=== PATIENT | female | born 1940 | race Caucasian/White ===

== ENCOUNTER 2017-09-10 01:59 | Emergency (ER) | payer MEDICARE, OTHER ==
[2017-09-10] MEDS ORDERED: LIDOCAINE 2%/EPI 1:100,000 20 ML VIAL. IJ (02:30)
[2017-09-10 02:43] LABS: ADD MAN DIFF? NO
[2017-09-10] MEDS: DIPHTH,PERTUSS(ACELL),TET TOX 0.5 ML DISP.SYRIN. VAX IM (02:44)
[2017-09-10 02:46] LABS: BASO # 0.1 x10^3/uL (0.0-0.2); BASO % 1 % (0-3); EOS # 0.2 x10^3/uL (0.0-0.7); EOS % 3 % (0-3); HEMOGLOBIN 11.4 g/dL (12.0-15.5); LYMPH # 2.5 x10^3/uL (1.0-4.8); LYMPH % 41 % (24-48); MEAN CORPUSCULAR HEMOGLOBIN 30 pg (25-35); MEAN CORPUSCULAR HGB CONC 34 g/dL (31-37); MEAN CORPUSCULAR VOLUME 90 fL (79-100); MONO # 0.4 x10^3/uL (0.0-1.1); MONO % 6 % (0-9); NEUT % 50 % (31-73); PLATELET COUNT 240 x10^3/uL (140-400); RED BLOOD COUNT 3.78 x10^6/uL (3.50-5.40); RED CELL DISTRIBUTION WIDTH 14.2 % (11.5-14.5)
[2017-09-10] MEDS: LIDOCAINE 2%/EPI 1:100,000 20 ML VIAL. IJ (02:46)
[2017-09-10] MEDS: IV NORMAL SALINE 1000ML BAG 1,000 ML IV (02:46)
[2017-09-10 02:56] LABS: ANION GAP 13 (6-14); BLOOD UREA NITROGEN 28 mg/dL (7-20); BUN/CREATININE RATIO 40 (6-20); CALCIUM 9.8 mg/dL (8.5-10.1); CARBON DIOXIDE 26 mmol/L (21-32); CHLORIDE 98 mmol/L (98-107); CREATININE 0.7 mg/dL (0.6-1.0); GFR 81.4; GLUCOSE 159 mg/dL (70-99); POTASSIUM 3.6 mmol/L (3.5-5.1); SODIUM 137 mmol/L (136-145)
[2017-09-10 03:02] LABS: ALBUMIN 3.6 g/dL (3.4-5.0); ALK PHOS 89 U/L (46-116); ALT (SGPT) 27 U/L (14-59); AST (SGOT) 20 U/L (15-37); TOTAL BILIRUBIN 0.2 mg/dL (0.2-1.0); TOTAL PROTEIN 7.2 g/dL (6.4-8.2)
[2017-09-10 03:09] LABS: THYROID STIM HORMONE (TSH) 2.575 uIU/mL (0.358-3.74)
== END 2017-09-10 06:06 | disposition home or self-care (01) ==
LOC: ER 01:59
DX: S01.81XA Laceration without foreign body of other part of head, initial encounter (principal); R53.1 Weakness; R79.89 Other specified abnormal findings of blood chemistry; R07.89 Other chest pain; E11.51 Type 2 diabetes mellitus with diabetic peripheral angiopathy without gangrene; K21.9 Gastro-esophageal reflux disease without esophagitis; I10 Essential (primary) hypertension; F03.90 Unspecified dementia, unspecified severity, without behavioral disturbance, psychotic disturbance, mood disturbance, and anxiety; W06.XXXA Fall from bed, initial encounter; Y93.89 Activity, other specified; Y99.8 Other external cause status; Y92.89 Other specified places as the place of occurrence of the external cause
CPT/HCPCS: 36415; 70450; 71045; 72125; 72170; 80053; 84443; 84484; 85025; 90471; 90715; 93005; 96360; 96361; 99285-25; J3490; J7030

== ENCOUNTER 2020-01-08 14:03 | Emergency (ER) | payer MEDICARE, MEDICAID ==
[~2020-01-08] VITALS: Ht 154.9 cm; Wt 85.0 kg
[~2020-01-08 14:03] MED LIST: ACET325T9 PO; ACET500T68 PO; AMLO10TA8 PO; ASPI-630 PO; ATOR20TA58 PO; CHOL500021 PO; HYDR50TA6 PO; LOSA100T14 PO; MAGN24003 PO; MAGN400T22 PO; METF10007 PO; ONDA4TAB7 PO; PIOG30TA41 PO; POLY17PO29 PO; SULF1TAB24 PO; VENL37.56 PO
[2020-01-08 14:43] LABS: BASO % 0 % (0-3); EOS % 0 % (0-3); HEMATOCRIT 30.7 % (36.0-47.0); HEMOGLOBIN 9.5 g/dL (12.0-15.5); LYMPH # 1.2 x10^3/uL (1.0-4.8); LYMPH % 9 % (24-48); MEAN CORPUSCULAR HEMOGLOBIN 27 pg (25-35); MEAN CORPUSCULAR HGB CONC 31 g/dL (31-37); MEAN CORPUSCULAR VOLUME 87 fL (79-100); MONO # 0.4 x10^3/uL (0.0-1.1); MONO % 3 % (0-9); NEUT # 11.5 x10^3/uL (1.8-7.7); NEUT % 87 % (31-73); PLATELET COUNT 253 x10^3/uL (140-400); RED BLOOD COUNT 3.54 x10^6/uL (3.50-5.40); RED CELL DISTRIBUTION WIDTH 24.8 % (11.5-14.5); WHITE BLOOD COUNT 13.2 x10^3/uL (4.0-11.0)
[2020-01-08 15:04] LABS: % BANDS 11 % (0-9); % LYMPHS 8 % (24-48); % MONOS 5 % (0-10); % SEGS 76 % (35-66); ANISOCYTOSIS MOD; OVALOCYTES FEW; PLT ESTIMATE ADEQUATE (ADEQUATE); POIKILOCYTOSIS SLIGHT; SCHISTOCYTES OCC
[2020-01-08 15:06] LABS: BURR CELLS PRESENT
--- NOTE | 2020-01-08 15:07 | RAD ---
Examination: CHEST AP ONLY History: Reason: sob, covid? / Spl. Instructions: / History: Comparison: 07/26/2018 Portable Chest X-ray Exam. Findings: AP portable upright frontal view of the chest was obtained. Suture material at the left hilar region noted. The cardiomediastinal silhouette is normal. Consolidation is present at the left upper and mid thoracic level. Minimal discoid atelectasis involves the right lower lung field. Pulmonary vasculature is slightly congested. No pneumothorax. Right upper quadrant surgical clips. IMPRESSION: Left upper to mid lung consolidation. Follow-up to resolution recommended. Electronically signed by: James Méndez MD (01/08/2020 3:04 PM) [id number]
[2020-01-08 15:08] LABS: ALBUMIN 2.8 g/dL (3.4-5.0); ALBUMIN/GLOBULIN RATIO 0.6 (1.0-1.7); ALK PHOS 126 U/L (46-116); ALT (SGPT) 25 U/L (14-59); AST (SGOT) 25 U/L (15-37); BLOOD UREA NITROGEN 110 mg/dL (7-20); BUN/CREATININE RATIO 16 (6-20); C-REACTIVE PROTEIN 147.3 mg/L (0-3.3); CALCIUM 9.6 mg/dL (8.5-10.1); CHLORIDE 99 mmol/L (98-107); CREATINE KINASE 76 U/L (26-192); CREATININE 6.8 mg/dL (0.6-1.0); GFR 5.9; GLUCOSE 133 mg/dL (70-99); LACTATE DEHYDROGENASE 196 U/L (81-234); SODIUM 139 mmol/L (136-145); TOTAL BILIRUBIN 0.3 mg/dL (0.2-1.0); TOTAL PROTEIN 7.4 g/dL (6.4-8.2)
[2020-01-08 15:13] LABS: POTASSIUM 7.8 mmol/L (3.5-5.1)
[2020-01-08 15:14] LABS: CARBON DIOXIDE < 5 mmol/L (21-32)
[2020-01-08] MEDS ORDERED: FUROSEMIDE 40 MG/4 ML VIAL. IVP ONE (15:30)
[2020-01-08] MEDS ORDERED: cefTRIAXone IV Push 1 GM VIAL. IVP ONE (15:30)
[2020-01-08] MEDS ORDERED: IV NORMAL SALINE 1000ML BAG 1,000 ML IV ONE (15:30)
[2020-01-08] MEDS ORDERED: CALCIUM GLUCONATE 1,000 MG/10 ML VIAL. IVP ONE (15:30)
[2020-01-08] MEDS ORDERED: MORPHINE SULFATE 4 MG/ML VIAL. IVP ONE (15:45)
[2020-01-08 15:51] LABS: BASE EXCESS ABG -28 mmol/L (-3-3); HCO3 ABG 3 mmol/L (21-28); PO2 ABG 229 mmHg (65-108); SAT O2 ABG 99 % (92-99)
[2020-01-08 15:53] LABS: FIO2 ABG 100; PCO2 ABG 16 mmHg (35-46)
--- NOTE | 2020-01-08 16:38 | PHYS DOC ---
Past Medical History Past Medical History: Arthritis, Dementia, Diabetes-Type II, GERD, High Cholesterol, Hypertension Additional Past Medical Histor: PVD, DYSPHAGIA, CONTRACTURES, CVD Past Surgical History: No Surgical History Smoking Status: Never Smoker Alcohol Use: None Drug Use: None General Adult EDM: Chief Complaint: DYSPNEA/RESPIRATOY DISTRESS HPI: HPI: Patient is a 79 year old [f__sex] who presents with [] Review of Systems: Review of Systems: Unable to obtain due to AMS Heart Score: Risk Factors: Risk Factors: DM, Current or recent (<one month) smoker, HTN, HLP, family history of CAD, obesity. Risk Scores: Score 0 - 3: 2.5% MACE over next 6 weeks - Discharge Home Score 4 - 6: 20.3% MACE over next 6 weeks - Admit for Clinical Observation Score 7 - 10: 72.7% MACE over next 6 weeks - Early Invasive Strategies Current Medications: Current Medications Medications (Trade) Dose Ordered Sig/Indu Start Time Stop Time Status Last Admin Dose Admin Calcium Gluconate (Calcium Gluconate) 1,000 mg 1X ONCE 01/08/20 15:30 01/08/20 15:31 DC 01/08/20 15:57 1,000 MG Ceftriaxone Sodium (Rocephin) 1 gm 1X ONCE 01/08/20 15:30 01/08/20 15:46 DC Furosemide (Lasix) 40 mg 1X ONCE 01/08/20 15:30 01/08/20 15:46 DC Morphine Sulfate (Morphine Sulfate) 3 mg 1X ONCE 01/08/20 15:45 01/08/20 15:46 DC 01/08/20 15:56 3 MG Sodium Chloride 1,000 ml @ 0 mls/hr 1X ONCE 01/08/20 15:30 01/08/20 15:31 DC 01/08/20 15:54 999 MLS/HR Allergies: Allergies: Allergies Coded Allergies Type Severity Reaction Last Updated Verified No Known Drug Allergies 07/26/18 No Physical Exam: PE: Constitutional: Cachectic, contractures, toxic appearing HEENT: Normocephalic, atraumatic, oropharynx moist, EOMI, PERRL, no drainage from eyes, normal conjunctiva Neck: Supple, normal range of motion, no stridor Cardiovascular: Bradycardia, 2+ radial pulses bilaterally, no edema Respiratory: Decreased breath sounds bilaterally, peripheral cyanosis, increased work of breathing, tachypnea Abdomen: Soft, nontender, nondistended, no masses Skin: Cold, dry, intact Extremities: No obvious deformities Neurologic: Nonverbal, minimal movement, responsive to painful stimuli Current Patient Data: Labs: Laboratory Tests Test 01/08/20 14:30 01/08/20 15:40 White Blood Count 13.2 x10^3/uL (4.0-11.0) H Red Blood Count 3.54 x10^6/uL (3.50-5.40) Hemoglobin 9.5 g/dL (12.0-15.5) L Hematocrit 30.7 % (36.0-47.0) L Mean Corpuscular Volume 87 fL (79-100) Mean Corpuscular Hemoglobin 27 pg (25-35) Mean Corpuscular Hemoglobin Concent 31 g/dL (31-37) Red Cell Distribution Width 24.8 % (11.5-14.5) H Platelet Count 253 x10^3/uL (140-400) Neutrophils (%) (Auto) 87 % (31-73) H Lymphocytes (%) (Auto) 9 % (24-48) L Monocytes (%) (Auto) 3 % (0-9) Eosinophils (%) (Auto) 0 % (0-3) Basophils (%) (Auto) 0 % (0-3) Neutrophils # (Auto) 11.5 x10^3/uL (1.8-7.7) H Lymphocytes # (Auto) 1.2 x10^3/uL (1.0-4.8) Monocytes # (Auto) 0.4 x10^3/uL (0.0-1.1) Eosinophils # (Auto) 0.0 x10^3/uL (0.0-0.7) Basophils # (Auto) 0.0 x10^3/uL (0.0-0.2) Segmented Neutrophils % 76 % (35-66) H Band Neutrophils % 11 % (0-9) H Lymphocytes % 8 % (24-48) L Monocytes % 5 % (0-10) Platelet Estimate Adequate (ADEQUATE) Poikilocytosis Slight Anisocytosis Mod Ovalocytes Few Dustin Cells Present Schistocytes Occ RBC Morphology Bizarre Forms D-Dimer (Precious) 3.98 ug/mlFEU (0.00-0.50) H Sodium Level 139 mmol/L (136-145) Potassium Level 7.8 mmol/L (3.5-5.1) *H Chloride Level 99 mmol/L (98-107) Carbon Dioxide Level < 5 mmol/L (21-32) *L Anion Gap (6-14) Blood Urea Nitrogen 110 mg/dL (7-20) H Creatinine 6.8 mg/dL (0.6-1.0) H Estimated GFR (Cockcroft-Gault) 5.9 BUN/Creatinine Ratio 16 (6-20) Glucose Level 133 mg/dL (70-99) H Calcium Level 9.6 mg/dL (8.5-10.1) Total Bilirubin 0.3 mg/dL (0.2-1.0) Aspartate Amino Transferase (AST) 25 U/L (15-37) Alanine Aminotransferase (ALT) 25 U/L (14-59) Alkaline Phosphatase 126 U/L (46-116) H Lactate Dehydrogenase 196 U/L (81-234) Creatine Kinase 76 U/L (26-192) Troponin I Quantitative 0.090 ng/mL (0.000-0.055) C-Reactive Protein, Quantitative 147.3 mg/L (0-3.3) H NF-Mfy-C-Type Natriuretic Peptide 41121 pg/mL (0-449) H Total Protein 7.4 g/dL (6.4-8.2) Albumin 2.8 g/dL (3.4-5.0) L Albumin/Globulin Ratio 0.6 (1.0-1.7) L O2 Saturation 99 % (92-99) Arterial Blood pH 6.90 (7.35-7.45) *L Arterial Blood pCO2 at Patient Temp 16 mmHg (35-46) *L Arterial Blood pO2 at Patient Temp 229 mmHg (65-108) H Arterial Blood HCO3 3 mmol/L (21-28) L Arterial Blood Base Excess -28 mmol/L (-3-3) L FiO2 100 Laboratory Tests 01/08/20 14:30 Laboratory Tests 01/08/20 14:30 Vital Signs: Vital Signs Date Time Temp Pulse Resp B/P (MAP) Pulse Ox O2 Delivery O2 Flow Rate FiO2 01/08/20 16:12 62 103/54 (70) 99 NonRebreather Mask 15.0 01/08/20 15:56 28 01/08/20 14:03 90.9 90.9 EKG: EKG: [] Radiology/Procedures: Radiology/Procedures: [] Course & Med Decision Making: Course & Med Decision Making Pertinent Labs and Imaging studies reviewed. (See chart for details) Patient is a 79-year-old female with past medical history of dementia who presents to the emergency room after being found to be in respiratory distress. Patient is requiring oxygen here in the emergency room. She is unable to provide any history. Patient has a wide QRS with bradycardia on EKG concerning for possible hypothermia, electrolyte abnormalities. Temperature was 90.2. Patient was placed on a bear hugger. Labs are drawn including CBC, CMP, troponin, BNP, UA. Patient appears to be in acute kidney failure. Her potassium is 7.8. Creatinine is significantly elevated. At this time patient would need emergent dialysis. I have called and talked to the patient's BOSSMAN Escalante. We have discussed the treatment that would be required at this time the family would like to opt for hospice care. Given patient's baseline and current status, I agreed that hospice would be the most humane way to proceed at this time. Patient was given calcium and fluids. She was given morphine to help with air hunger. Patient will be kept comfortable here in the emergency room. Multiple calls were made to the nursing facility and they have agreed to do hospice care for her at the facility. Patient will be discharged back to the facility. Greater than 45 minutes arranging care and talking with the family. Rony Disclaimer: Rony Disclaimer: This electronic medical record was generated, in whole or in part, using a voice recognition dictation system. Departure Departure Impression: Primary Impression: Renal failure Additional Impressions: Hyperkalemia Metabolic acidosis Dehydration Respiratory failure, acute Disposition: 05 TRANSFER OTHER (Hospice at facility) Condition: CRITICAL Additional Instructions: Patient is in renal failure. Family has opted for hospice care. Justicifation of Admission Dx: Justifications for Admission: Justification of Admission Dx: Yes Critical Care Time Critical Care: Authorized and Performed by: Wesley Cardona MD Total critical care time: approximately 45 minutes Due to a high probability of clinically significant, life threatening deterioration, the patient required my highest level of preparedness to intervene emergently and I personally spent this critical care time directly and personally managing the patient. This critical care time included obtaining a history; examining the patient; pulse oximetry; ventilator management if necessary; ordering and review of studies; arranging urgent treatment with development of a management plan; evaluation of patient's response to treatment; frequent reassessment; discussion with patient/family; and, discussions with other providers. This critical care time was performed to assess and manage the high probability of imminent, life-threatening deterioration that could result in multi-organ failure. It was exclusive of separately billable procedures and treating other patients and teaching time. Please see MDM section and the rest of the note for further information on pa tient assessment and treatment. WESLEY CARDONA MD Jan 08, 2020 16:38
[2020-01-08 17:27] VITALS: BP 73/38
--- NOTE | 2020-01-11 16:14 | EKG ---
[facility] [address] [place] [address] Test Date: 2020-01-08 Test Time: 14:09:27 Pat Name: ARUN KATE Department: Room: Gender: F Business Consultant: : [id number] Requested By: WESLEY ESPARZA Order Number: [id number] Reading MD: Measurements Intervals Locke Rate: 63 P: NV: QRS: -51 QRSD: 114 T: 38 QT: 456 QTc: 470 Interpretive Statements IRREGULAR RHYTHM, NO P-WAVE FOUND ABNORMAL LEFT AXIS DEVIATION S1,S2,S3 PATTERN LEFT ANTERIOR FASCICULAR BLOCK ST & T ABNORMALITY, CONSIDER ANTERIOR ISCHEMIA OR LEFT VENTRICULAR STRAIN ABNORMAL ECG RI6.01 No previous ECG available for comparison
== END 2020-01-08 17:40 | disposition home or self-care (01) ==
LOC: ER 14:03
DX: J96.00 Acute respiratory failure, unspecified whether with hypoxia or hypercapnia (principal); Z20.828 Contact with and (suspected) exposure to other viral communicable diseases; E11.22 Type 2 diabetes mellitus with diabetic chronic kidney disease; I12.9 Hypertensive chronic kidney disease with stage 1 through stage 4 chronic kidney disease, or unspecified chronic kidney disease; N18.9 Chronic kidney disease, unspecified; E87.5 Hyperkalemia; E87.2 Acidosis; E86.0 Dehydration; K21.9 Gastro-esophageal reflux disease without esophagitis; E78.00 Pure hypercholesterolemia, unspecified; F03.90 Unspecified dementia, unspecified severity, without behavioral disturbance, psychotic disturbance, mood disturbance, and anxiety
CPT/HCPCS: 36415; 36600; 51702; 71045; 80053; 82550; 82805; 83615; 83880; 84484; 85007; 85025; 85379; 86140; 87040; 87077; 87186; 87205; 93005; 96374; 96375; 99291; C9803; J0610; J2270; J7030; U0003; 99285-25